=== PATIENT | male | born 1940 | race Caucasian/White ===

== ENCOUNTER 2024-03-05 06:53 | Day surgery (SDC) | payer MEDICARE, SELFPAY ==
[2024-03-05] VITALS (27 sets, daily range): BP systolic 117–165; BP diastolic 66–98; PULSE 47–70; RESP 16; TEMP 35.7–36.9; O2SAT 90–98; BMI 26.6
[2024-03-05] MEDS: SODIUM CHLORIDE 0.9 % (FLUSH) 10 ML SYRINGE IVF (07:40)
[2024-03-05] MEDS: LACTATED RINGERS 1000 ML 1,000 ML 100 ML IV ×2 (07:40→11:26)
[2024-03-05] MEDS: OXYCODONE (CR) 10 MG TAB.ER.12H PO (07:40)
[2024-03-05] MEDS: CELECOXIB 200 MG CAPSULE PO (07:40)
[2024-03-05] MEDS: ACETAMINOPHEN 500 MG TABLET 1000 MG PO ×3 (07:40→21:05)
[2024-03-05] MEDS: MIDAZOLAM HCL 1 MG/ML inj IVP (09:10)
[2024-03-05] MEDS: fentaNYL 100 MCG/2 ML inj IVP (09:10)
--- NOTE | 2024-03-05 09:19 | SUR.PREOP ---
TIME?OUT:?1110 PT/Feng HERNANDEZ RN/Marko SILVA MDA?VERIFICATION?OF?SURGICAL?SITE,?PROCEDURE,?AND?CONSENT OBTAINED?PRIOR?TO?INVASIVE?PROCEDURE.
[2024-03-05] MEDS: TRANEXAMIC ACID 100 MG/ML INJ 1000 MG IV (09:50)
[2024-03-05] MEDS: CEFAZOLIN 2 GM INJ IVP (09:55)
--- NOTE | 2024-03-05 11:23 | P.ORPRC_ITS ---
Procedure Note Date of procedure: 03/05/24 Procedure: PREOPERATIVE DIAGNOSIS: Right knee osteoarthritis POSTOPERATIVE DIAGNOSIS: Right knee osteoarthritis NAME OF OPERATION: Right total knee arthroplasty SURGEON: Denzel Pederson MD RESEARCH NURSE: Azra Pedersen PA-C ANESTHESIA: Spinal ESTIMATED BLOOD LOSS: 0 mL COMPLICATIONS: None SPECIMENS: None DRAINS: None PREOPERATIVE ANTIBIOTICS: Ancef 2 grams, antibiotic impregnated cement IMPLANTS: 1. J&J Attune revision CRS #7 posterior stabilized femur 2. # 8 revision CRS fixed-bearing tibia 3. # 8 revision CRS, constrained posterior stabilized, 6 mm fixed-bearing polyethylene 4. 41 patella INDICATIONS: The patient is a 83-year-old with a longstanding history of severe, unrelenting right knee pain secondary to end-stage (grade IV) right knee osteoarthritis. Despite appropriate nonoperative management, including activity modification, anti-inflammatories, [id number] pain medication, bracing, physical therapy, and injections they continue to have pain and disability. Operative intervention was offered. The risks, benefits and expected outcomes were discussed in detail. These included but were not limited to: Infection, bleeding, injury to blood vessel or nerve, venous thromboembolism. All questions were answered to their satisfaction. Use of an language assistant was necessary throughout the case for patient positioning and safety, soft tissue retraction, and closure. PROCEDURE: Spinal anesthesia was administered. The patient was placed supine on the operating table. The language assistant made sure the patient was positioned appropriately. The lower extremity was prepped and draped in the usual sterile fashion. The limb was exsanguinated with the Stanislaw bandage. The pneumatic tourniquet was inflated to 300 mmHg. A standard anterior incision was made with the knee in flexion. Subcutaneous d issection was sharply taken through fascial layer #1. Full-thickness medial and lateral flaps were elevated. The language assistant retracted the soft tissues and protected them throughout the case. A standard subvastus approach was made. The patella was everted. The infrapatellar fat pad was preserved. The menisci and cruciate ligaments were sharply d?brided. Marginal osteophytes were d?brided with the rongeur. The drill was used to penetrate the femoral canal. The canal was aspirated and irrigated with pulse lavage. The intramedullary femoral guide was placed for a 5-degree valgus cut, removing 12 mm off the distal femur. The saw was used to make the cut. Whitesides line and the trans epicondylar axis were marked. The femoral sizing guide was pinned onto the distal femur. Three degrees of external rotation nicely parallels the transepicondylar axis. Pins were placed for posterior referencing. The four-in-one cutting guide was pinned onto the distal femur. The anterior, posterior, and chamfer cuts were made. The language assistant protected the collateral ligaments. The revision trial was placed. The box cuts were made. The drill was used x2. The stemmed, boxed trial was placed and was an excellent fit. Attention was then turned to the proximal tibia. The extramedullary tibial guide was placed for a neutral varus/valgus cut with 5 degrees of posterior slope, removing 2 mm based off the medial tibial surface. The language assistant protected the collateral ligaments and the neurovascular bundle. The saw was used to make the cut. Trial components were placed. The knee was nicely balanced in both flexion and extension. The trial components were removed. The tray was placed in appropriate rotation, parallel to our tibial cutting pins. It was pinned by the language assistant and the drill x2 was used. The stemmed tibial trial was placed. The punch was used. The tray was removed. The punch was used again. Attention was then turned to the patella. [place] patellar thickness was 22 mm. The lobster claw resection guide was used with the 9.5 mm mak. The saw was used to make the cut. Drill holes were made by the language assistant. The trial was placed and was an excellent fit. Cancellous surfaces were irrigated with pulse lavage and thoroughly dried by the language assistant. We cemented the tibial component, then the femoral component. We impacted the 6 mm polyethylene onto the tibial tray. The knee was brought into full extension. We then cemented the patellar component. Excessive cement was removed. The cement was allowed to harden. The knee was taken through a range of motion and was found to be nicely balanced in both flexion and extension. The patella tracks centrally. The language assistant did a three minute dilute Betadine solution soak. The language assistant irrigated the wound with 3 liters of normal saline via pulse lavage. The language assistant reapproximated the extensor mechanism with #1 Vicryl in an interrupted [id number] fashion. The language assistant then ran the extensor mechanism with a #1 PDO Stratafix. The language assistant closed the subcutaneous tissues with a 3-0 Stratafix and the skin with a running 3-0 Stratafix in a subcuticular fashion. Glue was used to seal the skin. The language assistant placed a dry dressing. Sponge and needle counts were correct x2. The patient tolerated the procedure well. There were no apparent complications. They were carefully transferred to the hospital bed and taken to the postanesthesia care unit in satisfactory condition. PLAN: The patient will be mobilized with physical therapy. Aspirin will be used for DVT prophylaxis. They will be discharged to home once medically appropriate.
--- NOTE | 2024-03-05 11:23 | CRLHL7_ITS ---
For Patients: As a result of the Century Cures Act, medical imaging exams and procedure reports are released immediately into your electronic medical record. You may view this report before your referring provider. If you have questions, please contact your health care provider. INDICATION: Postop right knee. TECHNIQUE: Two-view study right knee. FINDINGS: Total knee arthroplasty on the right with intact hardware and anatomic alignment. Dictated by Cherrie Salter MD @ 03/09/2024 8:10:30 AM (Electronically Signed)
--- NOTE | 2024-03-05 11:24 | P.NB_ITS ---
Nerve Block Nerve Block Time Seen by Provider: 09:13 Date Seen: 03/05/24 Type of block requested by surgeon for post-operative analgesia: adductor canal Side: right Time out performed: Yes Verification of patient name: Yes Verification of date of : Yes Site marking: site marked Name of person performing procedure: Gary Continuous monitoring Was continuous monitoring of O2 sat, B/P, medical collector, recorded every 15 minutes?: Yes Procedure Checklist: sterile prep, needles and gloves Ultrasound guided. Images saved: Yes Medications given in 5ml increments after negative aspiration: Ropivicaine %: 0.5 mL: 20 Needle gauge: 20 Decadron (mg): 10 Precedex (mcg): 25 Patient tolerated procedure well: Yes Additional comments: Needle noted adjacent to nerve Block Charges Block Charge (with Pro Fee): Femoral Nerve Use of Ultrasound Machine for Block: Yes- US Guidance/pain block
--- NOTE | 2024-03-05 11:25 | W.PM.NB ---
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
--- NOTE | 2024-03-05 11:25 | W.ANESCHARGE ---
Anesthesia Charges Start Date/Time Anesthesia Start Date: 03/05/24 Anesthesia Start Time: 09:44 Stop Date/Time Anesthesia Stop Date: 03/05/24 Anesthesia Stop Time: 12:20 Summary Extremes of Age - Over 70 or under 1: MDA
--- NOTE | 2024-03-05 12:21 | W.ANESCHARGE ---
Anesthesia Charges Start Date/Time Anesthesia Start Date: 03/05/24 Anesthesia Start Time: 09:44 Stop Date/Time Anesthesia Stop Date: 03/05/24 Anesthesia Stop Time: 12:20
[2024-03-05] MEDS: OXYCODONE 5 MG TABLET PO ×2 (14:41→15:23)
--- NOTE | 2024-03-05 15:11 | P.IMCN_ITS ---
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 Peedrson. Postoperatively, patient is doing well. Just took a pain pill. Denies headache or dizziness. Denies nausea or vomiting. Has tolerated clear liquids at this point. There have been no perioperative complications or nursing concerns reported. Estimated total blood loss documented as 0ml. Updated and reviewed the active medical problems, past medical history, past surgical history, social history, allergies and medications in our electronic EMR. Review of Systems Narrative: REVIEW OF SYSTEMS: Complete review of systems performed and negative unless otherwise stated in HPI or below. PFSH PFSH Medical History (Updated 03/05/24 @ 15:18 by Marycruz Lujan PA-C) Left leg pain ?M79.605 - Pain in left leg (ICD-10) Pterygium of right eye ?H11.001 - Unspecified pterygium of right eye (ICD-10) Primary osteoarthritis of both knees ?M17.0 - Bilateral primary osteoarthritis of knee (ICD-10) Nuclear senile cataract of both eyes ?H25.13 - Age-related nuclear cataract, bilateral (ICD-10) Inclusion cyst ?L72.0 - Epidermal cyst (ICD-10) Hyperopia of both eyes with astigmatism ?H52.03 - Hypermetropia, bilateral (ICD-10) ?H52.203 - Unspecified astigmatism, bilateral (ICD-10) Hyperglycemia ?R73.9 - Hyperglycemia, unspecified (ICD-10) Facial basal cell cancer ?C44.310 - Basal cell carcinoma of skin of unspecified parts of face (ICD-10) Essential (primary) hypertension ?I10 - Essential (primary) hypertension (ICD-10) Chronic fatigue ?R53.82 - Chronic fatigue, unspecified (ICD-10) BPH (benign prostatic hyperplasia) ?N40.0 - Benign prostatic hyperplasia without lower urinary tract symptoms (ICD-10) Surgical History H/O arthroscopy of shoulder ?Z98.890 - Other specified postprocedural states (ICD-10) Social History Smoking Status: Never smoker How often do you have a drink containing alcohol: never AUDIT-C Alcohol total score: 0 Non-prescribed substance use: denies use Caffeine: Yes Meds Home Medications and Allergies Home Medications ?Medication ?Instructions ?Recorded ?Confirmed ?Type amlodipine 5 mg tablet 5 mg PO DAILY 02/19/24 03/05/24 History losartan 100 1 tab PO DAILY 02/19/24 03/05/24 History mg-hydrochlorothiazide 12.5 mg tablet tamsulosin 0.4 mg capsule 0.4 mg PO DAILY 02/19/24 03/05/24 History magnesium 250 mg tablet 250 mg PO DAILY 03/03/24 03/05/24 History ascorbic acid (vitamin C) 100 mg 100 mg PO DAILY 03/05/24 03/05/24 History tablet Allergies Allergy/AdvReac Type Severity Reaction Status Date / Time No Known Drug Allergies Allergy Verified 03/05/24 07:32 Exam Narrative: Exam Narrative: PHYSICAL EXAM General: Pleasant, conversant, NAD HEENT: Normocephalic, atraumatic, sclera white, EOMI, oral mucosa moist Cardiovascular: RRR, S1S2. No pitting edema Pulmonary: CTA bilaterally without rhonchi, rales, expiratory wheezes. No dyspnea Abdominal: Soft, nondistended, NTTP Neurological: Alert, answering questions appropriately, cranial nerves intact, no focal findings Extremities: No gross joint deformity or swelling. Postoperative dressing in place, dry. Neurovascularly intact Skin: Warm, dry. Const: Vital Signs, click to edit/add: Vital Signs - 24 hr 03/05/24 07:45 03/05/24 09:10 03/05/24 09:15 Temperature 97.9 F Pulse Rate 67 56 L 55 L Respiratory Rate 16 16 16 Blood Pressure 165/94 H 144/91 H 139/75 Pulse Oximetry 94 97 96 Oxygen Delivery Me thod Room Air Nasal Cannula Nasal Cannula Oxygen Flow Rate 3 3 03/05/24 12:15 03/05/24 12:20 03/05/24 12:25 Temperature 97.2 F L Pulse Rate 52 L 52 L 51 L Respiratory Rate 16 16 16 Blood Pressure 128/68 128/75 134/67 Pulse Oximetry 92 92 92 Oxygen Delivery Me thod Room Air Room Air Room Air Oxygen Flow Rate 03/05/24 12:30 03/05/24 12:35 03/05/24 12:40 Temperature Pulse Rate 51 L 49 L 47 L Respiratory Rate 16 16 16 Blood Pressure 131/68 132/72 122/75 Pulse Oximetry 96 95 98 Oxygen Delivery Me thod Room Air Room Air Room Air Oxygen Flow Rate 03/05/24 12:45 03/05/24 12:50 03/05/24 13:00 Temperature 97.4 F L 96.2 F L 96.2 F L Pulse Rate 51 L 47 L 50 L Respiratory Rate 16 16 16 Blood Pressure 124/73 117/76 127/67 Pulse Oximetry 98 96 91 Oxygen Delivery Me thod Room Air Room Air Room Air Oxygen Flow Rate 3 03/05/24 13:02 03/05/24 13:16 03/05/24 13:30 Temperature 96.2 F L Pulse Rate 49 L 51 L Respiratory Rate 16 16 Blood Pressure 140/75 H 140/76 H Pulse Oximetry 97 98 90 Oxygen Delivery Me thod Room Air Room Air Room Air Oxygen Flow Rate 3 03/05/24 13:49 03/05/24 14:04 03/05/24 14:35 Temperature 97.0 F L Pulse Rate 49 L 51 L 53 L Respiratory Rate 16 16 16 Blood Pressure 124/73 135/69 148/98 H Pulse Oximetry 95 97 95 Oxygen Delivery Me thod Room Air Room Air Room Air Oxygen Flow Rate 3 3 Assessment and Plan Assessment and plan (1) Primary osteoarthritis of both knees: Problem comment: -POD#0 s/p R TKA -perioperative management including pain management and anticoagulation per Orthopedic surgery -encourage postoperative pulmonary hygiene -PT OT consults -plan to discharge home, [facility], with spouse tomorrow Status: Acute (2) Essential (primary) hypertension: Problem comment: Continue amlodipine and losartan/hydrochlorothiazide Status: Acute (3) BPH (benign prostatic hyperplasia): Problem comment: Continue tamsulosin Status: Acute Total Time Spent Total Time Spent: Total time spent caring for the patient today was 45 minutes. This includes time spent for the visit reviewing the chart, time spent during the visit, time spent after the visit and documentation and planning in coordination of care.
[2024-03-05] MEDS: CEFAZOLIN 2 GM in 0.9 % SODIUM CHLORIDE Mini-bag 100 ML IVPB (17:07)
[2024-03-05] MEDS: ONDANSETRON 2 MG/ML inj 4 MG IVP (17:30)
--- NOTE | 2024-03-05 18:53 | PC.NURSE ---
end of shift. pt has been pleasant. right knee pain. oxy was given. x2 and later he did have a 500 cc emesis. up with pt and he did get a little dizzy, IV is patent. matti to the knee. ice to the knee. he was up with 1 assist walker and GB.
[2024-03-05] MEDS: ASPIRIN 81 MG TABLET EC PO (21:05)
[2024-03-05] MEDS: SENNOSIDES 1 TAB TABLET 2 TAB PO (21:05)
[2024-03-05] MEDS: MAG HYDROX/ALUMINUM HYD/SIMETH 30 ML ORAL.SUSP PO (23:18)
[2024-03-06] MEDS: CEFAZOLIN 2 GM in 0.9 % SODIUM CHLORIDE Mini-bag 100 ML IVPB (01:37)
[2024-03-06] MEDS: ACETAMINOPHEN 500 MG TABLET 1000 MG PO ×2 (02:24→08:11)
[2024-03-06 02:28] VITALS: BP 156/81; PULSE 68; RESP 18; TEMP 36.7; O2SAT 95
[2024-03-06 06:31] LABS: Basophils Percent Auto 0.1 % (0.0-3.0); Hematocrit 40.6 % (37.0-53.0); Hemoglobin* 13.6 gm/dL (13.5-17.5); Immature Granulocytes Pct Auto 0.2 %; Lymphocytes Percent Auto 6.8 % (20-44); Mean Corpuscular HGB Conc 34 gm/dL (32-36); Mean Corpuscular Hemoglobin 31 pg (26-34); Mean Corpuscular Volume 92 fL (80-100); Monocytes Percent Auto 9.7 % (0.0-11.0); Neutrophils Percent Auto 83.2 % (42.0-72.0); Platelet Count* 229 K/uL (140-440); Red Blood Count 4.41 m/uL (4.30-5.90); White Blood Count* 18.59 K/uL (4.50-11.00)
--- NOTE | 2024-03-06 06:31 | PC.NURSE ---
End of shift [id number]: A&O pleasant and cooperative. VSS. Dressing to knee c/d/i. Positive CMS, strong plantar/dorsi flexion. Rating pain in knee 3-4/10. Declined and PRN pain medication overnight. Pt did not want dinner due to emesis previous in the day. Tolerated oral liquids and crackers overnight with no reports of nausea or vomiting. Pt report some indigestion. See eMAR.?up with A1 walker and gait belt. Denies any lightheaded/dizziness. Voiding adequate amounts. Saline locked.?
[2024-03-06 06:32] LABS: Slide Review Reflex No
[2024-03-06 06:46] LABS: INR 1.21 (0.91-1.10); Prothrombin Time 16.1 Seconds; Sodium* 135 mmol/L (135-149)
[2024-03-06 06:49] LABS: Creatinine* 0.7 mg/dL (0.5-1.5); Est. Creatinine Clearance* 51.39; Estimated Glomerular Filt Rate 92 ml/min
[2024-03-06 06:50] LABS: Blood Urea Nitrogen* 23 mg/dL (7-30)
[2024-03-06 07:20] VITALS: BP 153/79; PULSE 70; RESP 14; TEMP 37.4; O2SAT 92
[2024-03-06] MEDS: OXYCODONE 5 MG TABLET PO ×2 (07:26→10:18)
--- NOTE | 2024-03-06 08:20 | PM.ORPN ---
Subjective Subjective Time Seen by Provider: 07:30 Date Seen: 03/06/24 Principal diagnosis: Status post right knee replacement Interval history: Claudio is comfortable this morning. Pain increased a bit overnight. Ice is helping. He has been doing his exercises. He will be discharging later this morning with his and myself. Ortho Exam Narrative Exam Narrative: Alert and oriented x3. Patient is in no acute distress. Converses without labored breathing. Hearing is grossly intact. Ambulates with a walker. Examination of the right lower extremity shows soft tissue edema about the knee. Blood accumulation subcu. CMS intact right lower extremity. Able to straight leg raise. Calves are soft and nontender. He is able to range the knee 0-90 degrees. Const Vital Signs, click to edit/add: Vital Signs - 24 hr 03/05/24 09:10 03/05/24 09:15 03/05/24 12:15 Temperature 97.2 F L Pulse Rate 56 L 55 L 52 L Pulse Rate [Pulse Oximeter] Respiratory Rate 16 16 16 Blood Pressure 144/91 H 139/75 128/68 Blood Pressure [Left Arm] Pulse Oximetry 97 96 92 Oxygen Delivery Method Nasal Cannula Nasal Cannula Room Air Oxygen Flow Rate 3 3 03/05/24 12:20 03/05/24 12:25 03/05/24 12:30 Temperature Pulse Rate 52 L 51 L 51 L Pulse Rate [Pulse Oximeter] Respiratory Rate 16 16 16 Blood Pressure 128/75 134/67 131/68 Blood Pressure [Left Arm] Pulse Oximetry 92 92 96 Oxygen Delivery Method Room Air Room Air Room Air Oxygen Flow Rate 03/05/24 12:35 03/05/24 12:40 03/05/24 12:45 Temperature 97.4 F L Pulse Rate 49 L 47 L 51 L Pulse Rate [Pulse Oximeter] Respiratory Rate 16 16 16 Blood Pressure 132/72 122/75 124/73 Blood Pressure [Left Arm] Pulse Oximetry 95 98 98 Oxygen Delivery Method Room Air Room Air Room Air Oxygen Flow Rate 03/05/24 12:50 03/05/24 13:00 03/05/24 13:02 Temperature 96.2 F L 96.2 F L Pulse Rate 47 L 50 L Pulse Rate [Pulse Oximeter] Respiratory Rate 16 16 Blood Pressure 117/76 127/67 Blood Pressure [Left Arm] Pulse Oximetry 96 91 97 Oxygen Delivery Method Room Air Room Air Room Air Oxygen Flow Rate 3 05/30/24 13:16 03/05/24 13:30 03/05/24 13:49 Temperature 96.2 F L Pulse Rate 49 L 51 L 49 L Pulse Rate [Pulse Oximeter] Respiratory Rate 16 16 16 Blood Pressure 140/75 H 140/76 H 124/73 Blood Pressure [Left Arm] Pulse Oximetry 98 90 95 Oxygen Delivery Method Room Air Room Air Room Air Oxygen Flow Rate 3 3 03/05/24 14:04 03/05/24 14:35 03/05/24 15:00 Temperature 97.0 F L Pulse Rate 51 L 53 L 49 L Pulse Rate [Pulse Oximeter] Respiratory Rate 16 16 16 Blood Pressure 135/69 148/98 H 160/84 H Blood Pressure [Left Arm] Pulse Oximetry 97 95 97 Oxygen Delivery Method Room Air Room Air Room Air Oxygen Flow Rate 3 03/05/24 15:05 03/05/24 16:00 03/05/24 16:28 Temperature Pulse Rate 49 L Pulse Rate [Pulse Oximeter] 59 L Respiratory Rate 16 16 16 Blood Pressure 133/92 H Blood Pressure [Left Arm] Pulse Oximetry 95 92 Oxygen Delivery Method Room Air Room Air Oxygen Flow Rate 03/05/24 17:05 03/05/24 18:00 03/05/24 19:00 Temperature Pulse Rate 53 L 61 70 Pulse Rate [Pulse Oximeter] Respiratory Rate 16 16 16 Blood Pressure 157/81 H 140/81 H 126/66 Blood Pressure [Left Arm] Pulse Oximetry 95 94 93 Oxygen Delivery Method Room Air Room Air Room Air Oxygen Flow Rate 03/05/24 19:00 03/05/24 22:59 03/05/24 23:00 Temperature 98.4 F Pulse Rate Pulse Rate [Pulse Oximeter] 70 68 Respiratory Rate 16 16 16 Blood Pressure Blood Pressure [Left Arm] 126/66 149/79 H Pulse Oximetry 93 95 95 Oxygen Delivery Method Room Air Room Air Room Air Oxygen Flow Rate 03/06/24 02:28 03/06/24 07:20 03/06/24 07:20 Temperature 98.1 F 99.3 F Pulse Rate Pulse Rate [Pulse Oximeter] 68 70 70 Respiratory Rate 18 14 14 Blood Pressure Blood Pressure [Left Arm] 156/81 H 153/79 H Pulse Oximetry 95 92 Oxygen Delivery Method Room Air Room Air Oxygen Flow Rate 03/06/24 07:20 Temperature Pulse Rate Pulse Rate [Pulse Oximeter] Respiratory Rate 14 Blood Pressure Blood Pressure [Left Arm] Pulse Oximetry 92 Oxygen Delivery Method Room Air Oxygen Flow Rate Assessment and Plan Assessment and plan (1) Status post right knee replacement: Problem details: 03/05/2024[place] Status: Acute Assessment and Plan: Plan for discharge is today to home if they meet discharge criteria. DVT prophylaxis includes aspirin 81 mg twice daily x1 month, Compression stockings as needed for swelling. Frequent ambulation, every hour throughout the day. Remove dressing in 1 week. Observe wound and phone Orthopedics with any questions or concerns Return to clinic in 1 week for a wound check Minimize narcotic use. Wean off and discontinue soon as possible. Activities as tolerated. No strenuous activity. Outpatient physical therapy as scheduled. Ice and elevate the operative extremity. No restriction on ice. Claudio has all of his orthopedic medications, aspirin, senna, oxycodone, Tylenol. Prescriptions have been sent to his pharmacy prior to his arrival yesterday. I will be staying with him for 7-10 days postop. There for he does not need a postop visit at 1 week. He will see Dr. Pederson in 6 weeks. PT is scheduled in [place].
[2024-03-06] MEDS: ASPIRIN 81 MG TABLET EC PO (08:57)
[2024-03-06] MEDS: SENNOSIDES 1 TAB TABLET 2 TAB PO (08:57)
--- NOTE | 2024-03-06 11:46 | PC.NURSE ---
Discharge: Patient pleasant and cooperative. Patient vitally stable, lungs clear, BS WNL, IV removed, catheter intact. Patient rates right knee pain at most 3-4/10, 5mg of oxy given once and 10mg of oxy given once, active ice used. Right knee dressing C/D/I. Patient urinating well, no BM, tolerating regular diet. Patient signed belongings sheet and discharge form. Patient had no further questions regarding discharge. Patient left the floor by wheelchair to home at 1141.
== END 2024-03-06 11:41 | disposition home or self-care (01) ==
LOC: OR 06:53 → MEDSURG 06:55
PROVIDERS: Visit Provider Orthopaedic Surgery
PROC: (CPT 27447; principal; 2024-03-05 10:30)
DX: M17.11 Unilateral primary osteoarthritis, right knee (principal); G89.18 Other acute postprocedural pain; I10 Essential (primary) hypertension; N40.0 Benign prostatic hyperplasia without lower urinary tract symptoms; Z85.828 Personal history of other malignant neoplasm of skin; M21.061 Valgus deformity, not elsewhere classified, right knee
CPT/HCPCS: 27447; 01402; 36415; 64447; 64454; 73560; 76942; 82565; 84132; 84295; 84520; 85025; 85610; 97110; 97116; 97161; 97165; 97530; 97535; 99100; A9270; C1776; J0690; J1100; J2250; J2405; J2704; J2795; J3010; J7120

== ENCOUNTER 2024-05-26 10:03 | Day surgery (SDC) | payer MEDICARE, SELFPAY ==
[2024-05-26] VITALS (25 sets, daily range): BP systolic 107–197; BP diastolic 71–111; PULSE 47–78; RESP 14–16; TEMP 36.1–36.9; O2SAT 90–97; BMI 28.1
[2024-05-26] MEDS: CELECOXIB 200 MG CAPSULE PO (10:15)
[2024-05-26] MEDS: OXYCODONE (CR) 10 MG TAB.ER.12H PO (10:15)
[2024-05-26] MEDS: ACETAMINOPHEN 500 MG TABLET 1000 MG PO ×3 (10:15→23:01)
[2024-05-26] MEDS: LACTATED RINGERS 1000 ML 1,000 ML 100 ML IV ×2 (10:20→13:52)
[2024-05-26] MEDS: SODIUM CHLORIDE 0.9 % (FLUSH) 10 ML SYRINGE IVF ×3 (10:20→21:18)
[2024-05-26] MEDS: fentaNYL 100 MCG/2 ML inj IVP (10:55)
[2024-05-26] MEDS: MIDAZOLAM HCL 1 MG/ML inj IVP (10:55)
--- NOTE | 2024-05-26 11:08 | W.PM.NB ---
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 Images saved: Yes Medications given in 5ml increments after negative aspiration: Ropivicaine %: 0.5 mL: 20 Needle gauge: 20 Decadron (mg): 10 Precedex (mcg): 25 Patient tolerated procedure well: Yes Additional comments: Needle noted adjacent to nerve Block Charges Block Charge (with Pro Fee): Femoral Nerve Use of Ultrasound Machine for Block: Yes- US Guidance/pain block
--- NOTE | 2024-05-26 11:09 | W.PM.NB ---
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
--- NOTE | 2024-05-26 11:09 | W.ANESCHARGE ---
Anesthesia Charges Start Date/Time Anesthesia Start Date: 05/26/24 Anesthesia Start Time: 11:19 Stop Date/Time Anesthesia Stop Date: 05/26/24 Anesthesia Stop Time: 14:05 Summary Extremes of Age - Over 70 or under 1: MDA
--- NOTE | 2024-05-26 11:13 | SUR.PREOP ---
TIME?OUT:?1055 PT/Feng HERNANDEZ RN/Marko SILVA MDA?VERIFICATION?OF?SURGICAL?SITE,?PROCEDURE,?AND?CONSENT OBTAINED?PRIOR?TO?INVASIVE?PROCEDURE.
[2024-05-26] MEDS: CEFAZOLIN 2 GM INJ IVP (11:28)
[2024-05-26] MEDS: TRANEXAMIC ACID 100 MG/ML INJ 1000 MG IV (11:46)
--- NOTE | 2024-05-26 13:11 | CRLHL7_ITS ---
For Patients: As a result of the Cures Act, medical imaging exams and procedure reports are released immediately into your electronic medical record. You may view this report before your referring provider. If you have questions, please contact your health care provider. Indication: Postop TKA Technique: Two views left knee Findings/Impression: Hardware from a left total knee arthroplasty is in satisfactory position. Bone alignment is normal. No sign of acute fracture. Postop changes are within normal limits. Dictated by Juventino Garcia MD @ 05/27/2024 9:59:05 AM (Electronically Signed)
--- NOTE | 2024-05-26 13:13 | P.ORPRC_ITS ---
Procedure Note Date of procedure: 05/26/24 Procedure: PREOPERATIVE DIAGNOSIS: Left knee osteoarthritis POSTOPERATIVE DIAGNOSIS: Left knee osteoarthritis NAME OF OPERATION: Left total knee arthroplasty SURGEON: Denzel Pederson MD SHOES SALESPERSON: Azra Pedersen PA-C ANESTHESIA: Spinal ESTIMATED BLOOD LOSS: 0 mL COMPLICATIONS: None SPECIMENS: None DRAINS: None PREOPERATIVE ANTIBIOTICS: Ancef 1 g, antibiotic impregnated cement IMPLANTS: 1. J&J Attune revision CRS # 7 posterior stabilized femur, with a 14 mm x 50 mm cemented stem 2. Revision CRS # 8 fixed-bearing tibia, with a 14 mm x 50 mm cemented stem 3. # 7 posterior stabilized, 6 mm fixed-bearing constrained polyethylene 4. 41 patella INDICATIONS: The patient is a 84-year-old with a longstanding history of severe, unrelenting left knee pain secondary to end-stage (grade IV) left knee osteoarthritis. Despite appropriate nonoperative management, including activity modification, anti-inflammatories, [id number] pain medication, bracing, physical therapy, and injections they continue to have pain and disability. Operative intervention was offered. The risks, benefits and expected outcomes were discussed in detail. These included but were not limited to: Infection, bleeding, injury to blood vessel or nerve, venous thromboembolism. All questions were answered to their satisfaction. Use of an promotions assistant sales marketing was necessary throughout the case for patient positioning and safety, soft tissue retraction, and closure. A modifier 22 should be added to this case. With the amount of valgus deformity and lateral tibial bone loss stemmed and constrained components were necessary. This added time and cost to complete the case. PROCEDURE: Spinal anesthesia was administered. The patient was placed supine on the operating table. The promotions assistant sales marketing made sure the patient was positioned appropriately. The lower extremity was prepped and draped in the usual sterile fashion. The limb was exsanguinated with the Stanislaw bandage. The pneumatic tourniquet was inflated to 300 mmHg. A standard anterior incision was made with the knee in flexion. Subcutaneous dissection was sharply taken through fascial layer #1. Full-thickness medial and lateral flaps were elevated. The promotions assistant sales marketing retracted the soft tissues and protected them throughout the case. A standard subvastus approach was made. The patella was subluxed. The infrapatellar fat pad was preserved. The menisci and cruciate ligaments were sharply d?brided. Marginal osteophytes were d?brided with the rongeur. The drill was used to penetrate the femoral canal. The canal was aspirated and irrigated with pulse lavage. The intramedullary femoral guide was placed for a 5-degree valgus cut, removing 12 mm off the distal femur. The saw was used to make the cut. Whitesides line and the trans epicondylar axis were marked. The femoral sizing guide was pinned onto the distal femur. Three degrees of external rotation nicely parallels the transepicondylar axis. Pins were placed for posterior referencing. The four-in-one cutting guide was pinned onto the distal femur. The anterior, posterior, and chamfer cuts were made. The promotions assistant sales marketing protected the collateral ligaments. The revision trial was placed. The box cuts were made. The drill was used x2. The stemmed, boxed trial was placed and was an excellent fit. Attention was then turned to the proximal tibia. The extramedullary tibial guide was placed for a neutral varus/valgus cut with 5 degrees of posterior slope, removing 2 mm based off the medial tibial surface. The promotions assistant sales marketing protected the collateral ligaments and the neurovascular bundle. The saw was used to make the cut. Trial components were placed. The knee was nicely balanced in both flexion and extension. The trial components were removed. The tray was placed in appropriate rotation, parallel to our tibial cutting pins. It was pinned by the promotions assistant sales marketing and the drill x2 was used. The stemmed tibial trial was placed. The punch was used. The tray was removed. The punch was used again. Attention was then turned to the patella. [place] patellar thickness was 24 mm. The lobster claw resection guide was used with the 9.5 mm mak. The saw was used to make the cut. Drill holes were made by the promotions assistant sales marketing. The trial was placed and was an excellent fit. Cancellous surfaces were irrigated with pulse lavage and thoroughly dried by the promotions assistant sales marketing. We cemented the tibial component, then the femoral component. The trial polyethylene was placed. The knee was brought into full extension. We then cemented the patellar component. Excessive cement was removed. The cement was allowed to harden. We impacted the 6 mm polyethylene onto the tibial tray. The knee was reduced and was taken through a range of motion and was found to be nicely balanced in both flexion and extension. The patella tracks centrally. The promotions assistant sales marketing did a three minute dilute Betadine solution soak. The promotions assistant sales marketing irrigated the wound with 3 liters of normal saline via pulse lavage. The promotions assistant sales marketing reapproximated the extensor mechanism with #1 Vicryl in an interrupted [id number] fashion. The promotions assistant sales marketing then ran the extensor mechanism with a #1 PDO Stratafix. The promotions assistant sales marketing closed the subcutaneous tissues with a 3-0 Stratafix and the skin with a running 3-0 Stratafix in a subcuticular fashion. Glue was used to seal the skin. The promotions assistant sales marketing placed a dry dressing. Sponge and needle counts were correct x2. The patient tolerated the procedure well. There were no apparent complications. They were carefully transferred to the hospital bed and taken to the postanesthesia care unit in satisfactory condition. PLAN: The patient will be mobilized with physical therapy. Aspirin will be used for DVT prophylaxis. They will be discharged to home once medically appropriate.
--- NOTE | 2024-05-26 14:09 | P.ANES_ITS ---
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
--- NOTE | 2024-05-26 16:16 | P.IMCN_ITS ---
Date of Consult Patient: Other Consult date: 05/26/24 Requesting Physician: Orthopedics Primary Care Provider: Not a Local Provider Consult Narrative Reason for consult: bradycardia Narrative: Claudio Hancock is a 84 year old male with hypertension, hyperglycemia, BPH, and basal cell carcinoma who underwent left total knee arthroplasty today by Dr. Pederson for severe osteoarthritis. Nursing staff notified me postoperatively that he had been having bradycardia and the PACU and is still bradycardic upon arrival to the floor. He is asymptomatic. His rates are high 40s to low 50s, regular. He is not on any rate controlling medications. He denies chest pain, shortness of breath, dizziness or lightheadedness. He does not have a history of this. His daughter is 1 of our Ortho PAs and his son is a nurse senior sales administrator in [place]. They are concerned that he might have bladder distension that is causing bradycardia. Patient notes that he last urinated about 6 hours ago and denies any feeling of the need to go, although his block is not yet worn off. Review of Systems Status of ROS: Reports: 10 or more systems reviewed and unremarkable except as noted in History and below [facility] Medical History (Updated 05/26/24 @ 19:34 by Nicole Carr MD) Left leg pain ?M79.605 - Pain in left leg (ICD-10) Pterygium of right eye ?H11.001 - Unspecified pterygium of right eye (ICD-10) Primary osteoarthritis of both knees ?M17.0 - Bilateral primary osteoarthritis of knee (ICD-10) Nuclear senile cataract of both eyes ?H25.13 - Age-related nuclear cataract, bilateral (ICD-10) Inclusion cyst ?L72.0 - Epidermal cyst (ICD-10) Hyperopia of both eyes with astigmatism ?H52.03 - Hypermetropia, bilateral (ICD-10) ?H52.203 - Unspecified astigmatism, bilateral (ICD-10) Hyperglycemia ?R73.9 - Hyperglycemia, unspecified (ICD-10) Facial basal cell cancer ?C44.310 - Basal cell carcinoma of skin of unspecified parts of face (ICD-10) Essential (primary) hypertension ?I10 - Essential (primary) hypertension (ICD-10) Chronic fatigue ?R53.82 - Chronic fatigue, unspecified (ICD-10) BPH (benign prostatic hyperplasia) ?N40.0 - Benign prostatic hyperplasia without lower urinary tract symptoms (ICD-10) Surgical History (Updated 05/26/24 @ 19:30 by Nicole Carr MD) Status post left knee replacement ?Z96.652 - Presence of left artificial knee joint (ICD-10) Status post right knee replacement (03/05/24) ?Z96.651 - Presence of right artificial knee joint (ICD-10) H/O arthroscopy of shoulder ?Z98.890 - Other specified postprocedural states (ICD-10) Social History (Updated 05/26/24 @ 19:27 by Nicole Carr MD) Narrative: 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 Lifelong nonsmoker. Smoking Status: Never smoker How often do you have a drink containing alcohol: monthly or less AUDIT-C Alcohol total score: 1 Non-prescribed substance use: denies use Caffeine: Yes Meds Home Medications and Allergies Home Medications ?Medication ?Instructions ?Recorded ?Confirmed ?Type amlodipine 5 mg tablet 5 mg PO DAILY 02/19/24 05/26/24 History losartan 100 1 tab PO DAILY 02/19/24 05/26/24 History mg-hydrochlorothiazide 12.5 mg tablet tamsulosin 0.4 mg capsule 0.4 mg PO DAILY 02/19/24 05/26/24 History magnesium 250 mg tablet 250 mg PO DAILY 03/03/24 05/26/24 History ascorbic acid (vitamin C) 100 mg 100 mg PO DAILY 03/05/24 05/26/24 History tablet Allergies Allergy/AdvReac Type Severity Reaction Status Date / Time No Known Drug Allergies Allergy Verified 05/26/24 10:13 Exam Narrative: Exam Narrative: General: No acute distress. Awake alert oriented x3. HEENT: Normocephalic atraumatic, pupils equally round and reactive to light and accommodation. Oropharynx clear. Mucous membranes are moist. No cervical lymphadenopathy, thyromegaly or carotid bruits. No JVD. Cardiovascular: Bradycardic, regular. No murmurs, gallops, or rubs. Chest: No increased work of breathing. Clear to auscultation bilaterally. No crackles or wheezes. Abdomen: Bowel sounds present. Soft, nondistended, nontender. No hepatosplenomegaly or masses. No palpable bladder distention. Extremities: Left knee Martin wrap bandage is clean, dry, and intact. No edema, no cyanosis or clubbing. Skin: No jaundice, no pallor, no rashes. Bladder scan done by the nurse when I was in the room, repeated several times, showed 0 to 20 mL. Const: Vital Signs, click to edit/add: Vital Signs - 24 hr 05/26/24 10:25 05/26/24 10:55 05/26/24 11:00 Temperature 97.9 F Pulse Rate 63 56 L 58 L Respiratory Rate 16 16 16 Blood Pressure 197/90 H 178/91 H 157/89 H Pulse Oximetry 97 93 92 Oxygen Delivery Me thod Room Air Nasal Cannula Nasal Cannula Oxygen Flow Rate 3 3 05/26/24 11:05 05/26/24 14:05 05/26/24 14:10 Temperature 97.2 F L Pulse Rate 52 L 50 L 57 L Respiratory Rate 16 16 16 Blood Pressure 150/81 H 107/84 123/79 Pulse Oximetry 94 94 93 Oxygen Delivery Me thod Nasal Cannula Room Air Room Air Oxygen Flow Rate 3 05/26/24 14:15 05/26/24 14:20 05/26/24 14:25 Temperature Pulse Rate 55 L 50 L 53 L Respiratory Rate 14 14 14 Blood Pressure 124/80 125/71 118/79 Pulse Oximetry 94 94 93 Oxygen Delivery Me thod Room Air Room Air Room Air Oxygen Flow Rate 05/26/24 14:30 05/26/24 14:35 05/26/24 14:47 Temperature 97 F L 97.4 F L Pulse Rate 50 L 50 L 52 L Respiratory Rate 14 14 16 Blood Pressure 119/83 136/83 151/87 H Pulse Oximetry 92 93 90 Oxygen Delivery Me thod Room Air Room Air Room Air Oxygen Flow Rate 0 05/26/24 15:01 05/26/24 15:16 Temperature 97.4 F L 97.5 F L Pulse Rate 47 L 48 L Respiratory Rate 16 16 Blood Pressure 151/82 H 159/88 H Pulse Oximetry 97 92 Oxygen Delivery Me thod Room Air Room Air Oxygen Flow Rate 0 0 ECG Attestation: I personally reviewed and interpreted this ECG as follows: (05/26/2024: Sinus bradycardia, 47 beats per minute, minimal voltage criteria for LVH, maybe normal variant. No concerning ST or T-waves.) Assessment and Plan Assessment and plan (1) Status post left knee replacement: Problem comment: - 05/26/2024 Dr. Pederson - routine postop cares - VTE prophylaxis with twice a day baby aspirin, SCDs, Brandyn's hose Status: Acute (2) Osteoarthritis of left knee: Status: Chronic (3) Sinus bradycardia: Problem comment: - he is asymptomatic. - already improving. I have reviewed his medications and he is not on any rate control medications. He has no history of atrial fibrillation, atrial flutter or other arrhythmia. I suspect this is secondary to surgery and medications used for anesthesia. Monitor on cardiac telemetry. I asked cheryl neumann to notify us if he was having any symptoms of dizziness, lightheadedness, chest pain, or shortness of breath. Status: Acute (4) Essential (primary) hypertension: Problem comment: Hold amlodipine and losartan/hydrochlorothiazide for postop day 1 and restart upon homegoing. May restart these tomorrow if blood pressures are elevated at that time. Status: Chronic (5) BPH (benign prostatic hyperplasia): Problem comment: Continue tamsulosin Status: Chronic
[2024-05-26] MEDS: CEFAZOLIN 1 GM in 0.9 % SODIUM CHLORIDE Mini-bag 100 ML IVPB (17:34)
--- NOTE | 2024-05-26 18:55 | PC.NURSE ---
Pt arrived from surgery at 1447. Pt alert and oriented. Pt pleasant and cooperative. Pt had no complaints of pain. No complaints of nausea. Pt?s dressing dry and intact. Pt has been bradycardic since arrival from surgery hospitalist notified- EKG done and Pt placed on telemetry. Pt is HTN. Family at bedside. Pt has tolerated ice chips and water but has not wanted to try anything else thus far.?Pt up with two assist, walker and gait belt. Pt sitting in chair.
[2024-05-26] MEDS: ONDANSETRON 2 MG/ML inj 4 MG IVP (19:05)
[2024-05-26] MEDS: ASPIRIN 81 MG TABLET EC PO (21:18)
[2024-05-26] MEDS: SENNOSIDES 1 TAB TABLET 2 TAB PO (21:18)
[2024-05-27] VITALS (7 sets, daily range): BP systolic 147–168; BP diastolic 77–102; PULSE 68–89; RESP 16; TEMP 36.6–37; O2SAT 94–95
[2024-05-27] MEDS: CEFAZOLIN 1 GM in 0.9 % SODIUM CHLORIDE Mini-bag 100 ML IVPB (01:03)
[2024-05-27] MEDS: ACETAMINOPHEN 500 MG TABLET 1000 MG PO ×2 (04:07→10:56)
--- NOTE | 2024-05-27 04:23 | PC.NURSE ---
Pt rested well this night. Up walking halls. Voiding. Passing flatus. No N/V. Afebrile. Pain minimal.
[2024-05-27 06:30] LABS: Basophils Percent Auto 0.1 % (0.0-3.0); Hematocrit 39.4 % (37.0-53.0); Hemoglobin* 13.1 gm/dL (13.5-17.5); Immature Granulocytes Pct Auto 0.2 %; Lymphocytes Percent Auto 8.6 % (20-44); Mean Corpuscular HGB Conc 33 gm/dL (32-36); Mean Corpuscular Hemoglobin 30 pg (26-34); Mean Corpuscular Volume 91 fL (80-100); Neutrophils Percent Auto 82.1 % (42.0-72.0); Platelet Count* 222 K/uL (140-440); Red Blood Count 4.33 m/uL (4.30-5.90); White Blood Count* 14.48 K/uL (4.50-11.00)
[2024-05-27 06:35] LABS: Slide Review Reflex No
[2024-05-27 06:45] LABS: Potassium* 4.3 mmol/L (3.6-5.1); Sodium* 133 mmol/L (135-149)
[2024-05-27 06:48] LABS: Blood Urea Nitrogen* 20 mg/dL (7-30); Creatinine* 0.7 mg/dL (0.5-1.5); Est. Creatinine Clearance* 48.69; Estimated Glomerular Filt Rate 91 ml/min; INR 1.22 (0.91-1.10); Prothrombin Time 16.2 Seconds
--- NOTE | 2024-05-27 08:03 | PM.ORPN ---
Subjective Subjective Time Seen by Provider: 08:03 Date Seen: 05/27/24 Principal diagnosis: Status post left knee replacement Interval history: Claudio is doing well. He has ambulated in the hallways and that went well. He has been able to void. He is having breakfast without nausea or vomiting. He will discharge to home today. Ortho Exam Narrative Exam Narrative: Alert and oriented x3. Patient is in no acute distress. Converses without labored breathing. Hearing is grossly intact. Ambulates with a walker. Examination of the left knee shows the dressing is intact. Little to no edema. No erythema or warmth or sign of infection. No subcutaneous blood accumulation. Calves are soft and nontender. He is able to straight leg raise. He is able to range his knee easily. He is comfortable. CMS intact left lower extremity. Const Vital Signs, click to edit/add: Vital Signs - 24 hr 05/26/24 10:25 05/26/24 10:55 05/26/24 11:00 Temperature 97.9 F Pulse Rate 63 56 L 58 L Pulse Rate [Pulse Oximeter] Respiratory Rate 16 16 16 Blood Pressure 197/90 H 178/91 H 157/89 H Blood Pressure [Left Arm] Pulse Oximetry 97 93 92 Oxygen Delivery Method Room Air Nasal Cannula Nasal Cannula Oxygen Flow Rate 3 3 05/26/24 11:05 05/26/24 14:05 05/26/24 14:10 Temperature 97.2 F L Pulse Rate 52 L 50 L 57 L Pulse Rate [Pulse Oximeter] Respiratory Rate 16 16 16 Blood Pressure 150/81 H 107/84 123/79 Blood Pressure [Left Arm] Pulse Oximetry 94 94 93 Oxygen Delivery Method Nasal Cannula Room Air Room Air Oxygen Flow Rate 3 05/26/24 14:15 05/26/24 14:20 05/26/24 14:25 Temperature Pulse Rate 55 L 50 L 53 L Pulse Rate [Pulse Oximeter] Respiratory Rate 14 14 14 Blood Pressure 124/80 125/71 118/79 Blood Pressure [Left Arm] Pulse Oximetry 94 94 93 Oxygen Delivery Method Room Air Room Air Room Air Oxygen Flow Rate 05/26/24 14:30 05/26/24 14:35 05/26/24 14:47 Temperature 97 F L 97.4 F L Pulse Rate 50 L 50 L 52 L Pulse Rate [Pulse Oximeter] Respiratory Rate 14 14 16 Blood Pressure 119/83 136/83 151/87 H Blood Pressure [Left Arm] Pulse Oximetry 92 93 90 Oxygen Delivery Method Room Air Room Air Room Air Oxygen Flow Rate 0 05/26/24 15:01 05/26/24 15:16 05/26/24 15:31 Temperature 97.4 F L 97.5 F L 97.5 F L Pulse Rate 47 L 48 L 47 L Pulse Rate [Pulse Oximeter] Respiratory Rate 16 16 14 Blood Pressure 151/82 H 159/88 H 147/87 H Blood Pressure [Left Arm] Pulse Oximetry 97 92 92 Oxygen Delivery Method Room Air Room Air Room Air Oxygen Flow Rate 0 0 0 05/26/24 15:46 05/26/24 16:30 05/26/24 16:30 Temperature 97.6 F 97.6 F Pulse Rate 49 L 49 L 49 L Pulse Rate [Pulse Oximeter] Respiratory Rate 14 16 Blood Pressure 125/73 156/111 H Blood Pressure [Left Arm] Pulse Oximetry 97 96 Oxygen Delivery Method Room Air Room Air Oxygen Flow Rate 0 0 05/26/24 17:00 05/26/24 18:00 05/26/24 18:03 Temperature 97.6 F 97.8 F Pulse Rate 56 L 54 L Pulse Rate [Pulse Oximeter] Respiratory Rate 16 16 Blood Pressure 139/93 H 167/99 H Blood Pressure [Left Arm] Pulse Oximetry 93 96 97 Oxygen Delivery Method Room Air Room Air Oxygen Flow Rate 0 0 05/26/24 19:00 05/26/24 20:00 05/26/24 23:01 Temperature 97.5 F L 97.7 F 97.7 F Pulse Rate 73 78 Pulse Rate [Pulse Oximeter] Respiratory Rate 16 16 Blood Pressure 174/93 H 155/92 H Blood Pressure [Left Arm] Pulse Oximetry 94 95 Oxygen Delivery Method Room Air Room Air Oxygen Flow Rate 0 0 05/26/24 23:08 05/26/24 23:44 05/27/24 00:00 Temperature 98.4 F Pulse Rate 77 Pulse Rate [Pulse Oximeter] 77 Respiratory Rate 16 16 Blood Pressure Blood Pressure [Left Arm] 151/91 H Pulse Oximetry 95 95 Oxygen Delivery Method Room Air Room Air Oxygen Flow Rate 0 05/27/24 01:02 05/27/24 01:46 05/27/24 04:07 Temperature 98.4 F 98.6 F 98.6 F Pulse Rate Pulse Rate [Pulse Oximeter] 89 Respiratory Rate 16 Blood Pressure Blood Pressure [Left Arm] 166/102 H Pulse Oximetry 95 Oxygen Delivery Method Room Air Oxygen Flow Rate 05/27/24 07:15 Temperature 97.8 F Pulse Rate Pulse Rate [Pulse Oximeter] 71 Respiratory Rate 16 Blood Pressure Blood Pressure [Left Arm] 168/86 H Pulse Oximetry 94 Oxygen Delivery Method Room Air Oxygen Flow Rate Assessment and Plan Assessment and plan (1) Status post left knee replacement: Problem details: - 05/26/2024 Dr. Pederson - routine postop cares - VTE prophylaxis with twice a day baby aspirin, SCDs, Brandyn's hose Status: Acute Assessment and Plan: Plan for discharge is today to home if they meet discharge criteria. DVT prophylaxis includes aspirin 81 mg twice daily x1 month, Compression stockings as needed for swelling. Frequent ambulation, every hour throughout the day. Remove dressing in 1 week. Observe wound and phone Orthopedics with any questions or concerns Return to clinic in 1 week for a wound check Return to clinic in 6 weeks with surgeon Minimize narcotic use. Wean off and discontinue soon as possible. Activities as tolerated. No strenuous activity. Outpatient physical therapy as scheduled. Ice and elevate the operative extremity. No restriction on ice. Martin bandage as needed for edema.
[2024-05-27] MEDS: OXYCODONE 5 MG TABLET PO (08:18)
[2024-05-27] MEDS: TAMSULOSIN HCL 0.4 MG CAPSULE PO (08:18)
[2024-05-27] MEDS: ASPIRIN 81 MG TABLET EC PO (08:18)
[2024-05-27] MEDS: SENNOSIDES 1 TAB TABLET 2 TAB PO (08:18)
--- NOTE | 2024-05-27 12:21 | PC.NURSE ---
Pt alert and oriented. VSS. Pt had no complaints of pain. Pt?s dressing dry and intact. Pt?s IV removed; catheter intact. Pt to discharge home with and daughter.? ?
--- NOTE | 2024-05-27 13:39 | PC.SOCIAL ---
Pt. is being discharged home with family support and is moving well. No social work needs.
== END 2024-05-27 11:51 | disposition home or self-care (01) ==
LOC: OR 10:06 → MEDSURG 10:20
PROVIDERS: Visit Provider Orthopaedic Surgery
PROC: (CPT 27447; principal; 2024-05-26 12:15)
DX: M17.12 Unilateral primary osteoarthritis, left knee (principal); G89.18 Other acute postprocedural pain; R00.1 Bradycardia, unspecified; I10 Essential (primary) hypertension; R73.9 Hyperglycemia, unspecified; N40.0 Benign prostatic hyperplasia without lower urinary tract symptoms
CPT/HCPCS: 27447; 01402; 36415; 64447; 64454; 73560; 76942; 82565; 84132; 84295; 84520; 85025; 85610; 97110; 97116; 97161; 97165; 97535; 99100; A9270; C1776; J0690; J1100; J2250; J2405; J2704; J2795; J3010; J7120